=== PATIENT | female | born 1930 | race Caucasian/White ===

== ENCOUNTER → 2018-01-05 | Outpatient (CLI) | payer BC ==
[~2018-01-05] MED LIST: ACET-1256 PO; AMLO-110 PO; AMLO2.5T PO; ATEN-173 PO; ATV1 PO; CLOP1TAB15 PO; CLTP PO; CRD200 PO; DICY10CA55 PO; DULO-24 PO; HYDR-3126 PO; LRT5 PO; MICARDIS PO; MULT-1027 PO; NTRGSL/4 UT; PANT40TA PO; PRLSR20 PO; RANI150T85 PO; VNTHFA/IN INH; WARF1TAB PO
--- NOTE | 2018-01-05 17:16 | DIAGNOSTIC IMAGING REPORT ---
LUMBAR SPINE 7 VIEWS including flexion and extension HISTORY: LUMBAGO, LUMBAR POST LAMINECTOMY SYNDROME COMPARISON: Lumbar spine 11/26/2011. FINDINGS: There is no fracture. 4 mm of anterolisthesis of L3 on L4 and 3 mm of anterolisthesis of L4 on L5. This remains unchanged throughout flexion and extension. Disc spaces at L4-L5 and L5-S1 resulting in fusion of these levels. There is fusion of the facets from L2 through S1 with bone graft material. Status post L2-L5 laminectomies. Mild disc space narrowing at L2-L3 and L3-L4. Straightening of the lumbar spine with no significant movement on flexion or extension. IMPRESSION: 1. No fractures within the lumbar spine. 2. L2-L5 posterior decompression and fusion. 3. There is straightening of the lumbar spine without significant movement on flexion or extension. Electronically signed by: Billy Beckman M.D. 01/05/2018 5:15 PM Dictated Date/Time: 01/05/2018 5:11 PM
== END | disposition home or self-care (01) ==
LOC: C.RADBC 14:44
PROVIDERS: ATTEND Physician Assistant
DX: M96.1 Postlaminectomy syndrome, not elsewhere classified (principal); Z98.1 Arthrodesis status

== ENCOUNTER 2019-04-06 11:44 | Observation (INO) ==
[2019-04-06] MEDS ORDERED: BUPIVACAINE 0.25% 30 ML VIAL ONE (13:25)
[2019-04-06] MEDS ORDERED: LIDOCAINE HCL 1% 20 ML VIAL ONE (13:25)
[2019-04-06] MEDS ORDERED: BACITRACIN INJ 50,000 UNIT VIAL ONE (13:25)
--- NOTE | 2019-04-06 13:54 | Pre Anesthesia Assessment ---
Date of Service April 06, 2019 Pre Sedation Assessment Vital Signs Temp Pulse Resp BP Pulse Ox 04/06/19 12:54 36.7 C 67 16 158/48 H 94 Cardiovascular RRR, no murmur, no edema Respiratory normal respiratory effort, lungs clear to auscultation Pre-Sedation Airway Assessment Smoking Status: Never smoker Hx Sleep Apnea: No Short, Thick Neck: No Thyromental Distance: > or= 3.5 Finger Breadths Oral Cavity: + WNL Mallampati Class: IV ASA: ASA4 NPO Status Date of Last Intake of Fluids: 04/06/19 Time of Last Intake of Fluids: 08:00 Date of Last Intake of Solid Food: 04/06/19 Time of Last Intake of Solid Foods: 08:00 Notes The planned sedation has been discussed with the patient. Informed Consent was obtained. I have identified the patient, determined the appropriateness of sedation and have assessed the patient immediately prior to the procedure. All medicine(s) and interventions are by my order.
--- NOTE | 2019-04-06 13:55 | History & Physical Bridge Note ---
Date of Service April 06, 2019 History & Physical Bridge Note I have examined the patient, reviewed the History & Physical and in the interval since the performance of the History & Physical I have noted the following changes of clinical significance: pt with symptomatic SSS for dual chamber pacemaker
[2019-04-06] MEDS ORDERED: MIDAZOLAM HCL 5 MG/ML 1 ML VIAL ONE (13:57)
[2019-04-06] MEDS ORDERED: CEFAZOLIN 250 MG/ML 1 GM VIAL ONE (13:57)
[2019-04-06] MEDS ORDERED: ONDANSETRON INJ 2 MG/ML 2 ML VIAL ONE (14:01)
[2019-04-06] MEDS ORDERED: PROCHLORPERAZINE 5 MG/ML 2 ML VIAL ONE (14:15)
[2019-04-06] MEDS ORDERED: PROMETHAZINE HCL INJ 25 MG/ML 1 ML VIAL ONE (14:35)
[2019-04-06] MEDS ORDERED: raNITIdine HCl 25 MG/ML VIAL IV ONE (14:49)
[2019-04-06] MEDS ORDERED: HydrALAZINE HCL 20 MG/ML VIAL ONE (14:52)
[2019-04-06] MEDS ORDERED: TAPENTADOL HCL 50 MG TAB PO PRN (15:31)
[2019-04-06] MEDS ORDERED: LORazepam 0.5 MG TAB PO PRN (15:31)
[2019-04-06] MEDS ORDERED: ALBUTEROL HFA 8 GM INHALER INH PRN (15:31)
[2019-04-06] MEDS ORDERED: ALBUTEROL 0.083% NEBU SOLN 3 ML VIAL INH PRN (15:31)
[2019-04-06] MEDS ORDERED: NITROGLYCERIN SL 0.4 MG/TAB TAB SL PRN (15:31)
[2019-04-06] MEDS ORDERED: hydrOXYzine HCl 10 MG TAB PO PRN (15:31)
[2019-04-06] MEDS ORDERED: BENZONATATE 100 MG CAPSULE PO PRN (15:31)
[2019-04-06] MEDS ORDERED: ONDANSETRON 4 MG OD TAB PO PRN (15:31)
--- NOTE | 2019-04-06 15:36 | Post Anesthesia Assessment ---
Date of Service April 06, 2019 Post Sedation Assessment Vital Signs Temp Pulse Resp BP Pulse Ox 04/06/19 12:54 36.7 C 67 16 158/48 H 94 Recovery Score Activity: Moves 4 extremities Respiration: Deep Breath/Cough Circulation: +/-20% PreAnes Value Consciousness: Fully Awake Oxygen Saturation: > 92% On Room Air Discharge Sedation Level of Care: Fast Track Phase II Post Sedation Plan On clinical assessment, the patient appears to have tolerated the sedation without complications. Patient is recovering as anticipated. Patient will continue to be monitored by nursing and may be discharged when sedation discharge criteria are met per below protocol. Upon Completions of procedure and additional 15 minutes continue every 5 minute vital signs and the P.A.R. score; then discharge to a Phase I or Fast Track to Phase II per the following guidelines: * Discharge Patient to appropriate Phase II area if PAR is 8 or greater or return to pre- procedure baseline. The post - procedure orders will be as directed. * If PAR score is less than 8 or not return to pre-procedure baseline then patient will follow Phase I monitoring till PAR is reached for Phase II. The Phase I may be done in procedure room or may call to secure a Phase I area. * If naloxone or flumazenil are used for reversal, hold in Phase I for continued monitoring from when last reversal dose was given for a minimum of 60 minutes or longer pending the nurse and/or physician discretion of patient condition before discharge to Phase II. Please call the Sedation Physician to re-evaluate and complete post-note for discharge to Phase II area. Do NOT discharge from procedure sedation or Phase 1 until post- sedation evaluation note is complete by procedure /sedation MD Sedation Discharge Instructions to be given to the patient at discharge to home.
--- NOTE | 2019-04-06 15:37 | Operative Report ---
Post Operative Report Pre & Post Diagnosis sss Operation Date: 04/06/19 13:00 <No data on this case meets the specified criteria> Procedure Operation Date: 04/06/19 13:00 Actual Procedures p Pacer with A/V Leads (Dual) - Alta Henning DO Surgeon Alta Henning, DO Cap Inspector none Estimated Blood Loss 25 Findings Consistent with Post-Op Diagnosis Specimens none Description of Procedure see official report I attest to the content of the Intraoperative Record and any orders documented therein. Any exceptions are noted below.
[2019-04-06] MEDS ORDERED: BUDESONIDE 0.5 MG/2 ML VIAL (PULMICORT) INH SCH (15:45)
--- NOTE | 2019-04-06 15:46 | Discharge Summary ---
Date of Service April 06, 2019 Admission HPI Per Admitting Provider Pt transferred from [facility] for ppm due to SSS Admission Exam Per Admitting Provider aaox3, NAD NC/AT, EOMI Supple No JVD Nrl S1/S2, No murmur CTA b/l no w/r/r soft nt/nd no LE edema b/l skin intact no focal deficits Principal Diagnosis sss s/p dual chamber ppm Discharge Exam aaox3, NAD NC/AT, EOMI Supple No JVD Nrl S1/S2, No murmur CTA b/l no w/r/r soft nt/nd no LE edema b/l skin intact no focal deficits left pectoral incision intact, no hematoma mild ecchymosis ENMT Mallampati Class: IV Respiratory normal respiratory effort, lungs clear to auscultation Cardiovascular RRR, no murmur, no edema Discharge Data Allergies Allergy/AdvReac Type Severity Reaction Status Date / Time celecoxib Allergy Intermediate RASH Verified 04/06/19 15:40 fentanyl Allergy Intermediate RASH Verified 04/06/19 15:40 hydrochlorothiazide Allergy Intermediate RASH Verified 04/06/19 15:40 Sulfa (Sulfonamide Allergy Intermediate RASH Verified 04/06/19 15:40 Antibiotics) nitrofurantoin Allergy Unknown Unknown Verified 04/06/19 15:40 NSAIDS (Non-Steroidal AdvReac Intermediate SALICYLATES Verified 03/10/19 13:21 Anti-Inflamma meperidine AdvReac Mild N&V Verified 04/06/19 15:40 morphine AdvReac Mild VOMITING Verified 04/06/19 15:40 metoclopramide AdvReac Unknown Unknown Verified 04/06/19 15:40 Procedures Performed Operation Date: 04/06/19 13:00 Actual Procedures p Pacer with A/V Leads (Dual) - Alta Henning DO Ordered Studies CXR: No PTX, leads in position ECG: AF PPM Interrogation: Normal function stable lead testing since implant 04/06/19 14:15 EP Lab Images for PACS ONCE Hospital Course (1) SSS (sick sinus syndrome): s/p pacer tolerated well position confirmed functioning appropriately restrictions reviewed device clinic will call to arrange outpatient f/u will d/c to home Total Time Total Time Spent Total Time Spent (In Minutes): 30 Total Time Includes: Examination of the Patient, Discharge Planning, Medication Reconciliation and Other Discharge Plan Discharge Items Patient Disposition: Home - Self-Care Reason For Visit: DUAL CHAMBER PACEMAKER Discharge Diagnosis: SSS s/p dual chamber ppm Discharge Goals: Improve function Activity: As commented below Activity Comment: do not lift the left elbow over the left shoulder for 1 month Lifting: No more than 10 pounds Lifting Comment: do not lift more than 10 pounds with the left arm for 2 weeks Bathing: Keep incision dry Bathing Comment: can shower sunday 04/08 let water run over the incision do not scrub it Non-emergency contact: Mail Messenger Call non-emergency contact if: you have any medication questions Follow-up/Referrals: Berlin Espinoza PA-C [Primary Care Provider] - Diet: Heart Healthy Addtl Provider Instructions: device and wound check in [place] cardiology next week if you notice any swelling call my office immediately Prescriptions: New famotidine 20 mg Tablet 20 mg PO BID Qty: 60 RF: 0 metoprolol succinate 25 mg Tablet Extended Release 24 Hr 25 mg PO QAM Qty: 30 RF: 0 Continued multivitamin tablet 1 tab PO DAILY RF: 0 amlodipine 5 mg tablet 10 mg PO DAILY RF: 0 nitroglycerin 0.4 mg tablet, sublingual 0.4 mg SL Q5M PRN (Reason: Chest Pain) RF: 0 warfarin 1 mg tablet 1 mg PO DAILY RF: 0 albuterol sulfate 90 mcg/actuation HFA aerosol inhaler 2 puffs INH Q4H PRN (Reason: Wheezing) RF: 0 acetaminophen 500 mg capsule 500 mg PO Q6H PRN (Reason: Pain) RF: 0 dicyclomine 10 mg capsule 10 mg PO TID RF: 0 duloxetine 20 mg capsule,delayed release(DR/EC) 20 mg PO BID RF: 0 calcium carb-vitamin D3-vit K2 600 mg-1,000 unit-90 mcg tablet 1 tab PO DAILY RF: 0 furosemide 20 mg Tablet 20 mg PO DAILY RF: 0 amoxicillin 500 mg Capsule See Rx Instructions .ROUTE .COMPLEX RF: 0 clotrimazole 10 mg Scott 10 mg PO TID RF: 0 albuterol sulfate 2.5 mg /3 mL (0.083 %) Solution For Nebulization 1.25 mg INHALATION QID PRN (Reason: Wheezing) RF: 0 levothyroxine 75 mcg Tablet 75 mcg PO DAILY RF: 0 lorazepam 0.5 mg Tablet 0.5 mg PO HS PRN (Reason: Anxiety) RF: 0 benzonatate 100 mg Capsule 100 mg PO TID PRN (Reason: Cough) RF: 0 budesonide 0.5 mg/2 mL Suspension For Nebulization 0.5 mg INHALATION Q12H RF: 0 fluocinonide 0.05 % Cream See Rx Instructions .ROUTE .COMPLEX RF: 0 hydroxyzine HCl 10 mg Tablet 10 mg PO QID PRN (Reason: Anxiety) RF: 0 ondansetron 4 mg Tablet,Disintegrating 4 mg PO Q8 PRN (Reason: Nausea) RF: 0 No Action Nucynta 50 mg tablet 50 mg PO .QD-BID PRN (Reason: Pain) Qty: 30 RF: 0 Stand-Alone Forms: [facility] Discharge Orders: Discharge Order (Routine); Ordered 04/07/19 Ordered By: Jet Mejia Admission Data Admit Date/Time: 04/06/19 12:44 Attending Provider: Alta Henning Admit Provider: Alta Henning Primary Care Provider: Berlin Espinoza Service: Telemetry Other Interventions: Discharge Summary Assessment (RN) Last Done: 04/07/19 12:58 DC Date/Time DO NOT enter until pt leaves facility: 04/07/19 14:49
[2019-04-06] MEDS ORDERED: ACETAMINOPHEN 1,000 MG/100 ML VIAL IV PRN (16:29)
[2019-04-06] MEDS: BUDESONIDE 0.5 MG/2 ML VIAL (PULMICORT) INH SCH (19:21)
[2019-04-06] MEDS: FAMOTIDINE 20 MG TAB PO SCH (20:58)
[2019-04-06] MEDS: DULOXETINE HCL 20 MG CAP PO SCH (20:58)
[2019-04-06] MEDS: DICYCLOMINE HCL 10 MG CAP PO SCH (20:58)
[2019-04-07] MEDS: ACETAMINOPHEN 325 MG TAB PO PRN ×2 (00:02→08:57)
[2019-04-07] MEDS ORDERED: LEVOTHYROXINE SODIUM 75 MCG TABLET PO SCH (06:30)
[2019-04-07 07:02] LABS: Hematocrit (blood only) 44.5 % (37-47); Hemoglobin 14.7 g/dL (12.0-16.0); Mean Corpuscular Volume 92.3 fL (80-100); Mean Platelet Volume 11.9 fL (7.4-10.4); Platelet Count 207 K/uL (130-400); RDW Coefficient of Variation 13.5 % (11.5-14.5); RDW Standard Deviation 45.7 fL (36.4-46.3); Red Blood Count 4.82 M/uL (4.2-5.4); White Blood Count 10.67 K/uL (4.8-10.8)
[2019-04-07 07:12] LABS: INR 2.1 (0.9-1.1); Prothrombin Time 20.5 Seconds (9.0-12.0)
[2019-04-07] MEDS: BUDESONIDE 0.5 MG/2 ML VIAL (PULMICORT) INH SCH (07:37)
[2019-04-07] MEDS: DICYCLOMINE HCL 10 MG CAP PO SCH (08:17)
[2019-04-07] MEDS: DULOXETINE HCL 20 MG CAP PO SCH (08:17)
[2019-04-07] MEDS: FAMOTIDINE 20 MG TAB PO SCH (08:17)
[2019-04-07] MEDS ORDERED: MULTIVITAMIN TAB PO SCH (09:00)
[2019-04-07] MEDS ORDERED: METOPROLOL SUCC 25MG EXT REL TAB PO SCH (09:00)
[2019-04-07] MEDS ORDERED: CALCIUM 600MG + VIT D 400 IU TAB PO SCH (09:00)
[2019-04-07] MEDS ORDERED: AMLODIPINE BESYLATE 5 MG TAB PO SCH (09:00)
[2019-04-07] MEDS ORDERED: FUROSEMIDE 20 MG TAB PO SCH (09:00)
--- NOTE | 2019-04-07 11:17 | Cardiology Progress Note ---
Date of Service April 07, 2019 Assessment & Plan (1) SSS (sick sinus syndrome): s/p pacer tolerated well position confirmed functioning appropriately restrictions reviewed device clinic will call to arrange outpatient f/u will d/c to home Subjective Pt seen and examined, states that she feels well. Minimal discomfort at pocket site. Otherwise, denies cp, sob, palpitations, lightheadedness or dizziness. Review of Systems Review of Systems: All systems reviewed & are unremarkable except as noted in HPI & below Physical Exam Physical Exam: General: Awake, alert and oriented x 3. No acute distress. HEENT: Normocephalic, atraumatic. Pupils equal, round and reactive to light and accommodation. Extraocular muscles are intact. Anicteric sclera. Moist mucous membranes. Neck: No JVD. No bruit. Cardiovascular: Regular. Positive S-4. Normal S-1 and S-2. No S-3. No murmurs or rubs. Pulmonary: Clear to auscultation B/L. No rales, rhonchi or wheezing Abdomen: Bowel sounds x 4, soft. No rebound, guarding or tenderness. No organomegaly. Extremities: No clubbing, cyanosis or edema. +2 pedal pulses bilaterally. Skin: Warm and dry. Results & Data Vital Signs (Past 12 Hours) Vital Signs Temp Pulse Resp BP Pulse Ox 04/07/19 07:40 60 16 95 04/07/19 07:33 36.6 C 17 134/47 L 94 04/07/19 04:31 37.0 C 64 16 135/59 L 97 04/07/19 00:00 36.9 C 63 16 130/52 L 95
[2019-04-07] MEDS ORDERED: WARFARIN SOD 1 MG TAB PO SCH (16:00)
--- NOTE | 2019-04-15 09:38 | History & Physical Report ---
Date of Service April 06, 2019 Assessment & Plan (1) SSS (sick sinus syndrome): pt for ppm risks and procedure discussed; consent obtained History of Present Illness Chief Complaint: dizziness pt admitted to [facility] due to chest pain and PATEL had a nuclear stress test that was negative but has 2:1 AV block so transferred to [facility] for ppm Primary Care Provider: Berlin Espinoza PA-C Allergies Allergy/AdvReac Type Severity Reaction Status Date / Time celecoxib Allergy Intermediate RASH Verified 04/06/19 15:40 fentanyl Allergy Intermediate RASH Verified 04/06/19 15:40 hydrochlorothiazide Allergy Intermediate RASH Verified 04/06/19 15:40 Sulfa (Sulfonamide Allergy Intermediate RASH Verified 04/06/19 15:40 Antibiotics) nitrofurantoin Allergy Unknown Unknown Verified 04/06/19 15:40 NSAIDS (Non-Steroidal AdvReac Intermediate SALICYLATES Verified 03/10/19 13:21 Anti-Inflamma meperidine AdvReac Mild N&V Verified 04/06/19 15:40 morphine AdvReac Mild VOMITING Verified 04/06/19 15:40 metoclopramide AdvReac Unknown Unknown Verified 04/06/19 15:40 Home Medications Home Medications Medication Instructions Recorded Confirmed Type acetaminophen 500 mg capsule 500 mg PO Q6H PRN 06/11/18 04/06/19 History albuterol sulfate HFA 90 2 puffs INH Q4H PRN gm 06/11/18 04/06/19 History mcg/actuation aerosol inhaler amlodipine 5 mg tablet 10 mg PO DAILY 06/11/18 04/06/19 History calcium carbonate 600 mg-vitamin 1 tab PO DAILY tab 06/11/18 04/06/19 History D3 1,000 unit-vitamin K2 90 mcg tab dicyclomine 10 mg capsule 10 mg PO TID cap 06/11/18 04/06/19 History duloxetine 20 mg capsule,delayed 20 mg PO BID 06/11/18 04/06/19 History release multivitamin tablet 1 tab PO DAILY 06/11/18 04/06/19 History nitroglycerin 0.4 mg sublingual 0.4 mg SL Q5M PRN 06/11/18 04/06/19 History tablet warfarin 1 mg tablet 1 mg PO DAILY 06/11/18 04/06/19 History albuterol sulfate 1.25 mg INHALATION QID PRN 04/06/19 04/06/19 History amoxicillin See Rx Instructions .ROUTE .COMPLEX 04/06/19 04/06/19 History benzonatate 100 mg PO TID PRN 04/06/19 04/06/19 History budesonide 0.5 mg INHALATION Q12H 04/06/19 04/06/19 History clotrimazole 10 mg PO TID 04/06/19 04/06/19 History famotidine 20 mg PO BID #60 tab 04/06/19 Rx fluocinonide See Rx Instructions .ROUTE .COMPLEX 04/06/19 04/06/19 History furosemide 20 mg PO DAILY 04/06/19 04/06/19 History hydroxyzine HCl 10 mg PO QID PRN 04/06/19 04/06/19 History levothyroxine 75 mcg PO DAILY 04/06/19 04/06/19 History lorazepam 0.5 mg PO HS PRN 04/06/19 04/06/19 History metoprolol succinate 25 mg PO QAM #30 tab 04/06/19 Rx ondansetron 4 mg PO Q8 PRN 04/06/19 04/06/19 History tapentadol 50 mg tablet 50 mg PO .QD-BID PRN #30 tab 04/11/19 Rx Past Med/Surg History Social History Preferred Language: Bengali Communication Ability: Effective Visual Impairment: Limited Hearing Ability: Normal Bundle Helper Required: No Beliefs That Will Affect Care: None marital status: Current Living Situation: Spouse current occupational status: retired Other Information That Helps Us Care for You: No Feels Safe at Home: Yes Safety Concerns: Feels Safe At This Time Smoking Status: Never smoker Do You Dip or Chew Tobacco: No Second Hand Exposure: No Tobacco Cessation Education Requested by Patient: No Hx Alcohol Use: No Hx Substance Use: No Review of Systems All systems reviewed & are unremarkable except as noted in HPI & below +dizzines, fatigue, chest pain, SOB Physical Exam Physical Exam: aaox3, NAD NC/AT, EOMI Supple No JVD bradycardia S1/S2, No murmur CTA b/l no w/r/r soft nt/nd no LE edema b/l skin intact no focal deficits ENMT: Mallampati Class: IV Respiratory: normal respiratory effort, lungs clear to auscultation Cardiovascular: RRR, no murmur, no edema
--- NOTE | 2019-04-20 00:46 | Operative Report ---
DATE OF OPERATION: 04/06/2019 PREOPERATIVE DIAGNOSIS: Sick sinus syndrome. POSTOPERATIVE DIAGNOSIS: Sick sinus syndrome. PROCEDURE: Dual chamber rate responsive permanent pacemaker under fluoroscopic guidance. SURGEON: Alta Henning DO. HORSE RACING MANAGER: None. ANESTHESIA: Monitored conscious sedation administered under my supervision by Yumiko Ohara. Start time 14:08. End time 15:27. A total of 3 mg of Versed. IV FLUIDS: 41 mL. BLOOD LOSS: 20 mL. URINE OUTPUT: Not applicable. SPECIMENS: None. FINDINGS: See below. DRAINS: None. ADDITIONAL MEDICINES: 4 mg of Zofran, 10 mg of Compazine, 25 mg of Phenergan, 10 mg of hydralazine and 50 mg of Zantac. INDICATIONS: This is an 88-year-old female with past medical history for aortic insufficiency, paroxysmal atrial fibrillation, history of a CVA, aortic stenosis, coronary artery disease, where she had an RCA stent in 2003 and a left circumflex stent in 2009, ascending aortic aneurysm repair in 2011, hypertension, hyperlipidemia. She was admitted to [facility] secondary to some angina which was worked up and negative for any ischemia, so it was thought that this was all due to evidence of sick sinus syndrome when she was on the telemetry so she was transferred to [facility] for a pacemaker. CONSENT: Consent was obtained prior to the patient going into electrophysiology lab. The patient was informed of risks, benefits, and alternatives of the procedure. Risks include but not limited to sudden cardiac , cardiac arrhythmia, cerebrovascular accident, myocardial infarction, injury to the blood vessels, chamber of the heart, lung, bleeding, and infection. The patient understood these risks and agreed to the procedure as planned. Informed consent was obtained. DESCRIPTION OF THE PROCEDURE: The patient was brought into the electrophysiology lab in a fasting state. She was connected to continuous quality assurance monitor chassis. A timeout was performed to ensure patient identity and procedure correctly. The patient was prepped and draped over the left infraclavicular space in normal surgical standard fashion. Monitored conscious sedation was given throughout the procedure for patient's comfort level. Clarissa precautions were maintained throughout the procedure. 10 mL of 1% lidocaine, bupivacaine mixture were given in the left deltopectoral groove. Incision was made in left deltopectoral groove. Blunt dissection performed down to identify cephalic vein. Cephalic vein was identified and isolated using 0 silk ties. The vein was nicked with an 11 blade and an 8-Kyrgyz sheath was inserted over the guidewire without any resistance. Dilator was removed and a second guidewire was inserted though the 8-Kyrgyz sheath to allow for retained venous access. Then the sheath was removed, flushed and reinserted over the dilator and then reinserted along the guidewire. The guidewire and dilator removed and the ventricular lead was advanced into right ventricle and positioned into right ventricular apex under fluoroscopic guidance. There was adequate pacing and sensing thresholds and no diaphragmatic stimulation in high output pacing. The 8-Kyrgyz sheath was peeled away and lead was fixated to pectoralis muscle using 0 silk suture. A second 8-Kyrgyz sheath was inserted over the retained guidewire without any resistance. Guidewire and dilator removed and the right atrial lead was advanced into right atrium and positioned into right atrial appendage under fluoroscopic guidance. There was adequate sensing of the fib waves. The 8-Kyrgyz sheath was then peeled away and lead was fixated to pectoralis muscle using 0 silk suture. There was some back bleeding from the venous puncture site, so a pursestring using 2-[address] needle was placed. Then, a pacemaker pocket was created using blunt dissection over the pectoralis muscle within the pectoral fascia. The pocket was flushed with copious amounts of bacitracin and saline wash and inspected for hemostasis. The pulse generator was then attached to the leads, making sure that the pins were in appropriate position, passed set screws and set screws were all tightened. Pulse generator was then placed in the pocket, making sure that the leads were lying flat beneath the device. Using 0 silk the pacemaker was secured to the pectoralis muscle. Then Hina stat was placed in the pocket, then the incision was then closed in 3-layer fashion with 2-0 Vicryl interrupted suture followed by 3-0 Vicryl interrupted suture followed by 4-0 Monocryl running stitch. Dermabond was applied. EQUIPMENT: 1. Pulse generator is Medtronic Kristin XT DR EVER Awad [id number], serial number [id number]. 2. Right atrial lead Medtronic 5076-45 cm, serial # [id number]. 3. Right ventricular lead, Medtronic 5076-52 cm, serial # [id number]. INTRAOPERATIVE TESTIN. Right atrial lead: Fib waves are 0.8 millivolts, impedance 513 ohms, no threshold testing. The patient is in AFib. 2. Right ventricular lead: R-wave 14.5 millivolts, impedance 836 ohms, threshold 0.5 volts at 0.4 milliamps. FINAL PARAMETERS TO THE DEVICE: 1. Right atrial lead: Fib waves are 0.9 millivolts, impedance 532 ohms. 2. Right ventricular lead: R-wave 16.9 millivolts, impedance 874 ohms, threshold 0.5 volts at 0.4 milliseconds. FINAL PARAMETERS: MVP-R 60/130. Right atrial amplitude 3.5 volts, pulse width 0.4 milliseconds, sensitivity 0.15 millivolts. Right ventricular lead amplitude 3.5 volts, pulse width 0.4 milliseconds, sensitivity 1.2 millivolts. IMPRESSION: Successful implantation of dual chamber rate responsive permanent pacemaker under fluoroscopic guidance secondary to sick sinus syndrome. PLAN: Monitor patient overnight, 12-lead ECG, chest x-ray. She cannot lift left elbow or left shoulder for 1 month. She cannot lift more than 10 pounds with the left arm for 2 weeks. She can shower in 2 days, let water run over the incision, do not scrub it. She should follow up in our [place] office for device and wound check. I attest to the content of the Intraoperative Record and any orders documented therein. Any exception s are noted below.
== END 2019-04-07 14:49 | disposition home or self-care (01) ==
LOC: 2S 12:44 → INTOOBSV 12:44